=== PATIENT | female | born 1980 ===

== ENCOUNTER 2022-02-23 22:32 | Emergency (ER) | payer OTHER, SELFPAY ==
[2022-02-23] MEDS ORDERED: Ketamine 50 MG/ML (10ML VIAL) ONE (23:28)
[2022-02-24] MEDS ORDERED: Ondansetron PF 4 MG/2 ML Vial ONE (00:19)
== END 2022-02-24 01:10 | disposition home or self-care (01) ==
LOC: BURERS 22:32
DX: S53.124A Posterior dislocation of right ulnohumeral joint, initial encounter (principal); F10.129 Alcohol abuse with intoxication, unspecified; W01.0XXA Fall on same level from slipping, tripping and stumbling without subsequent striking against object, initial encounter
CPT/HCPCS: 24640; 96374; 99152; J2405